=== PATIENT | female | born 1990 | race Caucasian/White ===

== ENCOUNTER 2017-02-08 23:24 | Emergency (ER) | payer OTHER ==
[2017-02-08] MEDS ORDERED: SODIUM CHLORIDE 1,000 ML IV STA (23:38)
[2017-02-08] MEDS ORDERED: ONDANSETRON 4 MG/2 ML VIAL IVPB ONE (23:38)
[2017-02-08] MEDS ORDERED: MAG HYDROX/AL HYDROX/SIMETH 30 ML UNIT-DOSE CUP PO ONE (23:41)
[2017-02-08 23:46] VITALS: TEMP 98.4; BMI 29.0
--- NOTE | 2017-02-08 23:46 | PDOC ---
History of Present Illness - General Chief Complaint: Vomiting/Diarrhea Stated Complaint: VOMITING AND DIARRHEA/ Time Seen by Provider: 02/08/17 23:33 - History of Present Illness Initial Comments: 02/08/17 23:42 26 F with no PMH, 6 weeks by TVUS done earlier today, presents to ER with N/V/D. Pt states that her symptoms began 2 days ago with nausea and vomiting. She initially thought it was morning sickness, but she then developed diarrhea as well. Pt reports epigastric discomfort when vomiting but denies other abdominal pain. Denies vaginal discharge/bleeding. Denies dysuria. Pt states that her son was sick with vomiting just prior to her becoming sick. SHe denies F/C. Denies CP/SOB. She takes only vitamins. Had an OB visit and TVUS earlier today that was normal. Past History - Past Medical History Allergies/Adverse Reactions: Allergies Allergy/AdvReac Type Severity Reaction Status Date / Time No Known Allergies Allergy Verified 02/08/17 23:26 Home Medications: Ambulatory Orders Ondansetron [Zofran *Odt*] 8 mg SL BID PRN #12 od.tablet 02/09/17 Review of Systems - Review of Systems Comments:: 02/08/17 23:44 "GENERAL/CONSTITUTIONAL: No fever or chills. No weakness. HEAD, EYES, EARS, NOSE AND THROAT: No change in vision. No ear pain or discharge. No sore throat. CARDIOVASCULAR: No chest pain or shortness of breath. RESPIRATORY: No cough, wheezing, or hemoptysis. GASTROINTESTINAL: + nausea, + vomiting, + diarrhea GENITOURINARY: No dysuria, frequency, or change in urination. MUSCULOSKELETAL: No joint or muscle swelling or pain. No neck or back pain. SKIN: No rash NEUROLOGIC: No headache, vertigo, loss of consciousness, or change in strength/ sensation. ENDOCRINE: No increased thirst. No abnormal weight change. HEMATOLOGIC/LYMPHATIC: No anemia, easy bleeding, or history of blood clots. ALLERGIC/IMMUNOLOGIC: No hives or skin allergy. " *Physical Exam - Physical Exam Comments: 02/08/17 23:44 "GENERAL: Awake, alert, and fully oriented, in no acute distress HEAD: No signs of trauma EYES: PERRLA, EOMI, sclera anicteric, conjunctiva clear ENT: Auricles normal inspection, hearing grossly normal, nares patent, oropharynx clear without exudates. Moist mucosa NECK: Nontender, no stepoffs, Normal ROM, supple, no lymphadenopathy, JVD, or masses LUNGS: Breath sounds equal, clear to auscultation bilaterally. No wheezes, and no crackles HEART: Regular rate and rhythm, normal S1 and S2, no murmurs, rubs or gallops ABDOMEN: Gravid, soft, mild epigastric TTP, no lower quadrant tenderness EXTREMITIES: Normal range of motion, no edema. No clubbing or cyanosis. No cords, erythema, or tenderness NEUROLOGICAL: Cranial nerves II through XII intact. 5/5 strength and sensation in all extremities, Normal speech, normal gait SKIN: Warm, Dry, normal turgor, no rashes or lesions noted. " ED Treatment Course - LABORATORY CBC & Chemistry Diagram: 02/08/17 23:44 02/08/17 23:44 Medical Decision Making - Medical Decision Making 02/08/17 23:44 26 F 6 weeks presents to ER with N/V and diarrhea. Likely viral gastroenteritis given sick contact at home with similar complaints. Pt with only mild epigastric TTP, otherwise benign abdomen. - Labs - IVF, zofran, maalox - Reassess 02/09/17 01:39 CBC,CMP WBC 16.8 K/mm3 (4.0-10.0) H 02/08/17 23:44 RBC 4.44 M/mm3 (3.60-5.2) 02/08/17 23:44 Hgb 12.6 GM/dL (10.7-15.3) 02/08/17 23:44 Hct 37.9 % (32.4-45.2) 02/08/17 23:44 MCV 85.3 fl (80-96) 02/08/17 23:44 MCH 28.4 pg (25.7-33.7) 02/08/17 23:44 MCHC 33.3 g/dl (32.0-36.0) 02/08/17 23:44 RDW 13.2 % (11.6-15.6) 02/08/17 23:44 Plt Count 307 K/MM3 (134-434) 02/08/17 23:44 MPV 9.1 fl (7.5-11.1) 02/08/17 23:44 Neutrophils % 93.4 % (42.8-82.8) H 02/08/17 23:44 Lymphocytes % 3.3 % (8-40) L 02/08/17 23:44 Monocytes % 2.9 % (3.8-10.2) L 02/08/17 23:44 Eosinophils % 0.1 % (0-4.5) 02/08/17 23:44 Basophils % 0.3 % (0-2.0) 02/08/17 23:44 Sodium 138 mmol/L (136-145) 02/08/17 23:44 Potassium 4.0 mmol/L (3.5-5.1) 02/08/17 23:44 Chloride 102 mmol/L (98-107) 02/08/17 23:44 Carbon Dioxide 24 mmol/L (21-32) 02/08/17 23:44 Anion Gap 12 (8-16) 02/08/17 23:44 BUN 19 mg/dL (7-18) H 02/08/17 23:44 Creatinine 0.6 mg/dL (0.55-1.02) 02/08/17 23:44 Creat Clearance w eGFR > 60 (>60) 02/08/17 23:44 Random Glucose 119 mg/dL (74-106) H 02/08/17 23:44 Calcium 9.3 mg/dL (8.5-10.1) 02/08/17 23:44 Total Bilirubin 0.5 mg/dL (0.2-1.0) 02/08/17 23:44 AST 10 U/L (15-37) L 02/08/17 23:44 ALT 19 U/L (12-78) 02/08/17 23:44 Alkaline Phosphatase 80 U/L (45-117) 02/08/17 23:44 Total Protein 7.8 g/dl (6.4-8.2) 02/08/17 23:44 Albumin 4.2 g/dl (3.4-5.0) 02/08/17 23:44 Lipase 126 U/L (73-393) 02/08/17 23:44 Pt reassessed s/p fluids and medications. Now able to tolerate PO fluids without N/V. Labs unremarkable. UA with few bacteria and many epithelial cells. Nitrite negative, Leuk esterase pending. Will await culture before starting abx, as this was not a clean catch. Pt well appearing, tolerating PO, vitals wnl. Clinically stable for DC at this time. I discussed the physical exam findings, ancillary test results and final diagnoses with the patient. I answered all of the patient's questions. The patient was satisfied with the care received and felt comfortable with the discharge plan and treatment plan. The patient agrees to follow up with the primary care physician within 24-72 hours. 02/12/17 12:31 Pt's urine culture without growth. No indication for abx at this time. *DC/Admit/Observation/Transfer Diagnosis at time of Disposition: Gastroenteritis - Discharge Dispostion Disposition: HOME Condition at time of disposition: Good - Prescriptions Prescriptions: Ondansetron [Zofran *Odt*] 8 mg SL BID PRN #12 od.tablet PRN Reason: Nausea - Referrals - Patient Instructions Printed Discharge Instructions: DI for Viral Gastroenteritis -- Adult Additional Instructions: Drink plenty of fluids to stay hydrated. Take one zofran every 12 hours as needed for nausea. If you experience worsening nausea, vomiting, abdominal pain, or any other concerning symptoms, return to the ER immediately. Otherwise be sure to follow up with your OB or primary care doctor within 1 week for a re-evaluation. - Post Discharge Activity - Attestations Physician Attestion: 02/09/17 01:51 I, Dr. Jayce George MD, attest that this document has been prepared under my direction and personally reviewed by me in its entirety. I further attest, that it accurately reflects all work, treatment, procedures and medical decision -making performed by me.
[2017-02-08] MEDS ORDERED: ONDANSETRON 4 MG/2 ML VIAL ONE (23:50)
[2017-02-08] MEDS ORDERED: MAG HYDROX/AL HYDROX/SIMETH 30 ML UNIT-DOSE CUP ONE (23:50)
[2017-02-09 00:48] LABS: BASOPHIL 0.3 % (0-2.0); EOSINOPHIL 0.1 % (0-4.5); MCH 28.4 pg (25.7-33.7); MCHC 33.3 g/dl (32.0-36.0); MEAN CELL VOLUME 85.3 fl (80-96); MEAN PLT VOLUME 9.1 fl (7.5-11.1); NEUTROPHILS 93.4 % (42.8-82.8); PLATELET COUNT 307 K/MM3 (134-434); RDW 13.2 % (11.6-15.6); WHITE BLOOD COUNT 16.8 K/mm3 (4.0-10.0)
[2017-02-09 00:49] LABS: URINE APPEARANCE CLOUDY; URINE BILIRUBIN NEGATIVE (NEGATIVE); URINE BLOOD NEGATIVE (NEGATIVE); URINE COLOR AMBER; URINE GLUCOSE (UA) NEGATIVE (NEGATIVE); URINE KETONE 2+ (NEGATIVE); URINE NITRITE NEGATIVE (NEGATIVE); URINE UROBILINOGEN NEGATIVE mg/dL (0.2-1.0)
[2017-02-09 00:54] LABS: URINE PROTEIN 2+ (NEGATIVE)
[2017-02-09 01:07] LABS: URINE BACTERIA FEW /hpf (NONE SEEN); URINE MUCUS MANY; URINE RBC 3 /hpf (0-3); URINE WBC 1 /hpf (3-5)
[2017-02-09 01:36] LABS: ALBUMIN 4.2 g/dl (3.4-5.0); ANION GAP 12 (8-16); BILIRUBIN,TOTAL 0.5 mg/dL (0.2-1.0); CALCIUM 9.3 mg/dL (8.5-10.1); CO2 24 mmol/L (21-32); CREATININE 0.6 mg/dL (0.55-1.02); GLUCOSE,RANDOM 119 mg/dL (74-106); SGOT/AST 10 U/L (15-37); SGPT/ALT 19 U/L (12-78); TOT PROT 7.8 g/dl (6.4-8.2)
[2017-02-09 01:37] LABS: ALK PHOS 80 U/L (45-117)
[2017-02-09] MEDS ORDERED: ONDANSETRON 4 MG/2 ML VIAL IVPUSH ONE (01:46)
[2017-02-09] MEDS ORDERED: ONDANSETRON 4 MG/2 ML VIAL ONE (01:54)
[2017-02-09 02:08] VITALS: BP 126/62; PULSE 89
[2017-02-09 10:36] LABS: URINE LEUK ESTERASE Negative (NEGATIVE)
== END 2017-02-09 02:07 | disposition home or self-care (01) ==
LOC: FER 23:24
PROC: 3E033GC Introduction of Other Therapeutic Substance into Peripheral Vein, Percutaneous Approach (ICD-10-PCS; principal; 2017-02-08)
PROC: 3E0337Z Introduction of Electrolytic and Water Balance Substance into Peripheral Vein, Percutaneous Approach (ICD-10-PCS; 2017-02-08)
DX: O99.611 Diseases of the digestive system complicating pregnancy, first trimester (principal); K92.89 Other specified diseases of the digestive system; Z3A.01 Less than 8 weeks gestation of pregnancy
CPT/HCPCS: 36415; 80053; 81003; 81015; 83690; 85025; 87086; 87804; 96361; 96374; 96376; 99281-25